=== PATIENT | male | born 1955 | race Caucasian/White ===

== ENCOUNTER 2017-03-12 10:41 | Emergency (ER) | payer BC ==
--- NOTE | ~2017-03-12 | EKG ---
PATIENT: JC BARROS UNIT #: [id number] Ventricular Rate: 69 BPM Atrial Rate: 69 BPM P-R Interval: 162 ms QRS Duration: 84 ms Q-T Interval: 372 ms QTC Calculation(Bezet): 398 ms P Fraser: 57 degrees Calculated R Fraser: 58 degrees Calculated T Fraser: 49 degrees Diagnosis Line: Normal sinus rhythm Diagnosis Line: Normal ECG Diagnosis Line: No previous ECGs available Diagnosis Line: Confirmed by WILLY FRAZIER MD ([id number]) on Diagnosis Line: 03/13/2017 6:47:23 AM INTERPRETING MD: FRANK
--- NOTE | ~2017-03-12 | CT71 ---
[facility] A Service of [facility] RADIOLOGY TEXT RESULTS PATIENT: JC BARROS LOCATION: [facility] : 55 UNIT #: [id number] AGE: [address]: Samuel Morse MD SEX: M ORDER DR: [id number] [facility] [address] [place], [place] [address] [id number] MR#: [id number] Acc #: [id number] NAME: JC BARROS. : 1955 SEX: M STUDY DATE/TIME: 03/12/2017 12:42 UNIT: [facility] ROOM: STUDY DESCRIPTION: CT Head Wo Contrast Attending Physician: Samuel Morse M.D. Ordering Physician: Isauro Andrade M.D. Primary Care Physician: Kerry Terry M.D. MEDICAL IMAGING REPORT This report is preliminary unless electronic signature is present EXAM Head CT no contrast 03/12/2017 HISTORY Headache and confusion since this morning. Memory loss. TECHNIQUE Axial noncontrast images were obtained from the skull base to the vertex. This CT exam was performed with one or more of the following radiation dose reduction techniques: automatic exposure control, adjustment of mA and/or kV according to patient size, and iterative reconstruction. FINDINGS Ventricular size and configuration are normal. There is no evidence of acute infarct or hemorrhage. There are no extraaxial fluid collections. No mass lesion or mass effect is seen. There are no skull fractures. IMPRESSION Normal noncontrast head CT. Dictated by... Austin Adams M.D. THIS IS AN ELECTRONICALLY VERIFIED REPORT Austin Adams M.D. at 03/13/2017 3:52 PM TEV/to TD: 03/12/2017 17:08 JOB #: [id number] [facility] A Service of [facility] RADIOLOGY TEXT RESULTS PATIENT: JC BARROS LOCATION: [facility] : 55 UNIT #: [id number] AGE: [address]: Samuel Morse MD SEX: M ORDER DR: MEDICAL IMAGING REPORT Page 1 of 1 COPY
--- NOTE | ~2017-03-12 | MR18 ---
[facility] A Service of [facility] RADIOLOGY TEXT RESULTS PATIENT: JC BARROS LOCATION: [facility] : 55 UNIT #: [id number] AGE: [address]: Samuel Morse MD SEX: M ORDER DR: [id number] [facility] [address] [place], [place] [address] [id number] E MR#: [id number] Acc #: [id number] NAME: JC BARROS. : 1955 SEX: M STUDY DATE/TIME: 03/12/2017 14:29 UNIT: [facility] ROOM: STUDY DESCRIPTION: MR Brain Wo Contrast Attending Physician: Samuel Morse M.D. Ordering Physician: Isauro Andrade M.D. Primary Care Physician: Kerry Terry M.D. MRI CENTER REPORT This report is preliminary unless electronic signature is present. EXAM Brain MR without contrast 03/12/2017 HISTORY Headache and confusion since waking this morning. COMPARISON STUDIES Head CT, same date. TECHNIQUE Routine unenhanced brain MRI. FINDINGS The brain is structurally normal. There is no MR evidence of acute ischemia or other restricted diffusion. There are a few rare nonspecific white matter T2 changes but brain parenchymal signal is normal for age. There is no intracranial hemorrhage and normal flow voids are seen in the cerebral vessels. The extracranial soft tissues are normal. IMPRESSION Minimal nonspecific white matter changes, essentially normal for age, unenhanced brain MRI. No hemorrhage, mass, acute ischemia, hydrocephalus or other acute abnormality. Dictated by... Austin Adams M.D. THIS IS AN ELECTRONICALLY VERIFIED REPORT Austin Adams M.D. at 03/13/2017 3:52 PM TEV/pcl [facility] A Service [facility] RADIOLOGY TEXT RESULTS PATIENT: JC BARROS LOCATION: [facility] : 55 UNIT #: [id number] AGE: [address]: Samuel Morse MD SEX: M ORDER DR: TD: 03/12/2017 21:58 JOB #: [id number] [facility] REPORT Page 1 of 1 COPY
[2017-03-12 11:41] LABS: BASOPHIL% 0.7 % (0-2.5); EOSINOPHIL# 0.2 X10e3 (0-0.7); EOSINOPHIL% 2.3 % (0.0-7.0); HEMATOCRIT 47.5 % (38.0-50.0); HEMOGLOBIN 15.7 gm/dL (13.0-16.0); LYMPHOCYTE# 2.2 X10e3 (1.0-3.5); LYMPHOCYTE% 33.2 % (17.0-45.0); MEAN CELL VOLUME 86.6 FL (83-96); MEAN CORPUSCULAR HEMOGLOBIN 28.7 PG (28-34); MEAN CORPUSCULAR HGB CONC 33.2 g/dL (30-36); MEAN PLATELET VOLUME 8.4 FL (6.5-11.5); MONOCYTE# 0.4 X10e3 (0-1.0); MONOCYTE% 5.5 % (3.0-12.0); NEUTROPHIL# 3.8 X10e3 (1.5-7.1); NEUTROPHIL% 58.3 % (40-75); PLATELET COUNT 195 X10e3 (140-420); RED BLOOD COUNT 5.48 X10e (3.90-5.60); WHITE BLOOD COUNT 6.5 X10e3 (4.0-10.5)
[2017-03-12 11:42] LABS: DIFF IND NO
[2017-03-12 12:03] LABS: PARTIAL THROMBOPLASTIN TIME 30.2 SECONDS (23.5-31.3); PROTHROMBIN TIME (PATIENT) 11.2 SECONDS (10.0-11.7)
[2017-03-12 12:06] LABS: ALBUMIN SERUM 4.5 g/dL (3.5-5.0); BILIRUBIN, DIRECT 0.1 mg/dL (0.0-0.2); BILIRUBIN,INDIRECT 0.4 mg/dL (0.0-0.9); BILIRUBIN,TOTAL 0.5 mg/dL (0.2-2.0); BUN/CREATININE RATIO 12.72; CALCIUM SERUM 9.2 mg/dL (8.4-10.2); CREATININE SERUM 1.1 mg/dL (0.6-1.4); GLOM FILT RATE Estimated 72.1 mL/min (>60); POTASSIUM 4.1 mmol/L (3.5-5.1); PROTEIN TOTAL SERUM 7.5 g/dL (6.0-8.3)
[2017-03-12 14:25] LABS: URINE SOURCE CLEAN CATCH
[2017-03-12 14:30] LABS: URINE APPEARANCE CLEAR; URINE BILIRUBIN NEG (NEG); URINE BLOOD NEG (NEG); URINE COLOR YELLOW; URINE GLUCOSE NEG (NEG); URINE KETONE NEG (NEG); URINE LEUKOCYTE ESTERASE NEG (NEG); URINE NITRATE NEG (NEG); URINE PH 7.5 (5-8); URINE PROTEIN NEG (NEG); URINE SPECIFIC GRAVITY 1.017 (1.003-1.035); URINE UROBILINOGEN 0.2 MG/DL (NEG)
[2017-03-12 14:33] LABS: CULTURE INDICATED? NO
== END 2017-03-12 16:15 | disposition home or self-care (01) ==
LOC: CED 10:41
PROVIDERS: Emergency Medicine
DX: R41.0 Disorientation, unspecified (principal); E78.5 Hyperlipidemia, unspecified; Z90.49 Acquired absence of other specified parts of digestive tract; Z87.891 Personal history of nicotine dependence
CPT/HCPCS: 36415; 70450; 70551; 80048; 80076; 81003; 82947; 85025; 85610; 85730; 93005; 99285